=== PATIENT | female | born 1960 | race Caucasian/White ===

== ENCOUNTER 2020-04-04 12:42 | Inpatient (IN) | payer OTHER ==
[~2020-04-04] VITALS: Ht 157.5 cm; Wt 113.5 kg
[~2020-04-04 12:42] MED LIST: ALBU90OI INH; BUPR150T2; CIPR250 PO; HYDACE10B PO; HYDACE5 PO; HYDGUAL120 PO; PHENA200 PO; PROM25S PR; RXHYDGUAS PO; SERT100; SULTRIDS PO; TRAZ100
[2020-04-04 14:08] LABS: BASOPHILS ABSOLUTE AUTO 0.07 K/mm3 (0.00-0.23); BASOPHILS PERCENT AUTO 1 % (0-2); EOSINOPHILS ABSOLUTE AUTO 0.07 K/mm3 (0.00-0.68); EOSINOPHILS PERCENT AUTO 1 % (0-6); Hematocrit 39.6 % (33.0-51.0); Hemoglobin 13.3 g/dL (11.5-16.0); IMMATURE GRAN ABSOLUTE AUTO 0.03 K/mm3 (0.00-0.10); IMMATURE GRAN PERCENT AUTO 0 % (0-1); LYMPHOCYTES ABSOLUTE AUTO 2.47 K/mm3 (0.84-5.20); LYMPHOCYTES PERCENT AUTO 32 % (21-46); MONOCYTES ABSOLUTE AUTO 0.62 K/mm3 (0.16-1.47); MONOCYTES PERCENT AUTO 8 % (4-13); Mean Corpuscular HGB 30.6 pg (26.0-34.0); Mean Corpuscular HGB Conc 33.6 g/dL (31.5-36.5); Mean Corpuscular Volume 91 fL (80-100); Mean Platelet Volume 9.9 fL (9.1-12.4); NEUTROPHILS ABSOLUTE AUTO 4.58 K/mm3 (1.96-9.15); NEUTROPHILS PERCENT AUTO 58 % (41-73); Platelet Count 300 K/mm3 (150-400); RDW Coefficient Variation 13.7 % (11.7-14.2); Red Blood Cell Count 4.34 M/mm3 (3.80-5.20); White Blood Cell Count 7.84 K/mm3 (4.00-11.30)
[2020-04-04 14:39] LABS: Alanine Aminotransfer (ALT/SGP 21 U/L (12-78); Albumin, Blood 3.9 g/dL (3.4-5.0); Alk Phos 80 U/L (50-136); Anion Gap 6 mmol/L (6-16); Aspartate Aminotrans (AST/SGOT 18 U/L (12-37); Bilirubin, Total 0.3 mg/dL (0.1-1.0); Blood Urea Nitrogen 12 mg/dL (8-24); Bun/Creatinine Ratio 15.2 (12.0-20.0); CO2, Blood 25 mmol/L (21-32); Calcium, Blood 8.4 mg/dL (8.5-10.1); Chloride, Blood 108 mmol/L (98-108); Creatinine, Blood 0.79 mg/dL (0.40-1.00); Globulin, Blood 3.8 g/dL (2.2-4.0); Glomerular Filtration Rate >60 (60-); Glucose, Blood 82 mg/dL (70-99); Potassium, Blood 3.6 mmol/L (3.5-5.5); Sodium, Blood 139 mmol/L (136-145); Total Protein, Blood 7.7 g/dL (6.4-8.2); Troponin I 0.073 ng/mL (0.000-0.040)
[2020-04-04] MEDS ORDERED: Glucophage 850850 MG PO (17:25)
[2020-04-04] MEDS ORDERED: HYDCHL50 PO (17:25)
[2020-04-04] MEDS ORDERED: VENL75ER PO (17:26)
[2020-04-04] MEDS ORDERED: EUTHYROX175 MCG PO (17:26)
[2020-04-04] MEDS ORDERED: MOBIC15 MG PO (17:26)
[2020-04-04] MEDS ORDERED: Buspirone HCl30 MG PO (17:27)
[2020-04-04] MEDS ORDERED: ZESTRIL40 M1 PO (17:27)
[2020-04-04] MEDS ORDERED: Simvastatin40 MG PO (17:27)
[2020-04-04] MEDS ORDERED: ALBU90OI INH (18:09)
[2020-04-04] MEDS ORDERED: BUPR150ER PO (18:09)
[2020-04-04 18:17] LABS: International Normalized Ratio 0.99; Prothrombin Time Results 10.6 Sec (9.7-11.5)
[2020-04-04 20:38] LABS: Troponin I 0.068 ng/mL (0.000-0.040)
--- NOTE | 2020-04-04 21:35 | NUR ---
ADMIT ASSESSMENT PT ALERT AND ORIENTED UPON ARRIVAL TO ICU. PT WAS ABLE TO STAND AND TRASFER TO BED WITH NO ISSUES. VITALS ARE STABLE. ELEVATED BP HOWEVER SHE DENIES CHEST PAIN OR DISCOMFORT OF ANY TYPE. PT WAS ABLE TO GIVE A HEALTH HISTORY TO THIS RN. SHE STOOD AND WALKED TO TOILET WITH NO ASSISTANCE AND WAS A LITTLE SOB, BUT STATES THIS IS MUCH BETTER THAN EARLIER. NO DROP IN OXYGEN SATS AND SHE IS ON RA. TWO PERIPHERAL IV'S PATENT WITH CDI DRESSINGS. HEP GTT RUNNING AT 13 UNITS ORDERED. PT DOES HAVE A NICOLE GTT ORDERED, BUT KUSH FORRESTER DISABILITY SPECIALIST IN TO SEE PT AND STATES WILL START GTT IF NEEDED TO CON'T TO MONITOR CHEST PAIN AND BP. PT TOOK NIGHT MEDS WITH NO ISSUES. SHE WAS GIVEN A SNACK AT THIS TIME AND HAS NOT ISSUES WITH EATING. RT IN ROOM TO ASSESS PT FOR CPAP. PT STATES SHE USED TO WEAR ONE UNTIL IT WAS STOLEN. PT ORIENTED TO CALL LIGHT. WILL CON'T TO MONITOR AND KEEP PT SAFE T/O REMAINDER OF SHIFT.
[2020-04-04 21:53] LABS: Free Thyroxine 0.95 ng/dL (0.70-1.60)
[2020-04-04 21:55] LABS: Triiodothyronine, Free 2.35 pg/mL (2.18-3.98)
[2020-04-05 02:05] LABS: BASOPHILS ABSOLUTE AUTO 0.07 K/mm3 (0.00-0.23); BASOPHILS PERCENT AUTO 1 % (0-2); EOSINOPHILS ABSOLUTE AUTO 0.15 K/mm3 (0.00-0.68); EOSINOPHILS PERCENT AUTO 2 % (0-6); Hematocrit 38.2 % (33.0-51.0); Hemoglobin 12.9 g/dL (11.5-16.0); IMMATURE GRAN ABSOLUTE AUTO 0.02 K/mm3 (0.00-0.10); IMMATURE GRAN PERCENT AUTO 0 % (0-1); LYMPHOCYTES ABSOLUTE AUTO 3.42 K/mm3 (0.84-5.20); LYMPHOCYTES PERCENT AUTO 37 % (21-46); MONOCYTES ABSOLUTE AUTO 0.72 K/mm3 (0.16-1.47); MONOCYTES PERCENT AUTO 8 % (4-13); Mean Corpuscular HGB 30.9 pg (26.0-34.0); Mean Corpuscular HGB Conc 33.8 g/dL (31.5-36.5); Mean Corpuscular Volume 92 fL (80-100); Mean Platelet Volume 9.8 fL (9.1-12.4); NEUTROPHILS ABSOLUTE AUTO 4.92 K/mm3 (1.96-9.15); NEUTROPHILS PERCENT AUTO 53 % (41-73); Platelet Count 283 K/mm3 (150-400); RDW Standard Deviation 47.5 fL (35.1-46.3); Red Blood Cell Count 4.17 M/mm3 (3.80-5.20)
[2020-04-05 02:30] LABS: Anion Gap 4 mmol/L (6-16); Blood Urea Nitrogen 13 mg/dL (8-24); Bun/Creatinine Ratio 15.5 (12.0-20.0); CHOL/HDL RATIO 3.4; CO2, Blood 29 mmol/L (21-32); Calcium, Blood 8.2 mg/dL (8.5-10.1); Chloride, Blood 106 mmol/L (98-108); Cholesterol 202 mg/dL (50-200); Creatinine, Blood 0.84 mg/dL (0.40-1.00); Glomerular Filtration Rate >60 (60-); Glucose, Blood 96 mg/dL (70-99); HDL Cholesterol 60 mg/dL (>39); LDL/HDL RATIO 1.9; Low Density Lipoprotein Chol 112 mg/dL (0-110); Potassium, Blood 3.5 mmol/L (3.5-5.5); Sodium, Blood 139 mmol/L (136-145); Triglycerides 151 mg/dL (30-160); Troponin I 0.054 ng/mL (0.000-0.040); Very Low Density Lipoprot Chol 30 mg/dL (6-32)
--- NOTE | 2020-04-05 05:39 | NUR ---
SHIFT SUMMARY PT CON'T TO BE STABLE. HER BP IS ELEVATED, BUT SHE CON'T TO DENY CHEST PAIN OR ANY DISCOMFORT. VITLAS ARE STABLE OTHEWISE. PT WORE HER CPAP FOR A SHORT PERIOD OF TIME AND THEN COULD NOT TOLERATE IT. PT HAS BEEN UP TO TOILET A FEW TIMES. SHEIS PLESANT AND COOPERATIVE WITH ALL HER CARE AND USES HER CALL LIGHT WELL. HEP GTT CON'T TO RUN ORDERED. WILL CON'T TO MONITOR AND KEEP PT SAFE TILL REPORT TO ONCOMING RN.
--- NOTE | 2020-04-05 07:53 | NUR ---
CARE ASSUMED ASSESSMENT COMPLETED, PT A&OX4, APPROPRIATE AND COOPERATIVE. ASSISTED TO BR, GAIT STEADY. PT REPORTS MILD MID CHEST PRESSURE, DENIES PAIN, HEPARIN INFUSING AT 14U/KG/HR. HR 70'S SINUS, SBP 140-160. PT ALSO REPORTS MILD SOB WITH EXERTION, RESOLVES WITH REST, SPO2 94% RA, NO DESAT WITH AMBULATION. PT PLEASANT AND COOPERATIVE, SITTING UP EATING BREAKFAST AT THIS TIME WITHOUT DIFFICULTY. PLANNING FOR ECHO TODAY.
--- NOTE | 2020-04-05 14:44 | NUR ---
TRANSFER MED FLOOR PT HAD AN UNEVENTFUL MORNING AND AFTERNOON, BP REMAINS 150/105, DR. GALEANA, METOPROLOL ADDED TO REGIMEN PER ORDERS. OTHER VSS, PT MEDICATED FOR HEADACHE X1, REPORTS CHEST PRESSURE AND SOB REMAIN MINIMAL. GAIT STEADY WITH SBA, PT INDEPENDENT WITH CARES. HEPARIN INFUSING AT 16U/KG/HR PER ORDERS, DR. RESTREPO AWAITING ECHO RESULTS TO DECIDE ON INSERT OPERATOR VS. CARDIAC STRESS TESTING. REPORT GIVENT TO RECEIVING RN, PT TO ROOM 309 WITH CHART, MEDS, AND BELONGINGS. TRANSFERRED VIA WC WITHOUT INCIDENT.
--- NOTE | 2020-04-05 16:45 | NUR ---
ALERT. ORIENTED. ARRIVES FROM ICU ABOUT 1435. AMBULATORY IN ROOM W/STEADY GAIT. DENIES CHEST PAIN OR PRESSURE. ECHO REPORT NOT READ YET. PER CHYRON OPERATOR DEPENDING ON WHAT IT SAYS PATIENT MAY HAVE STRESS TEST OR ANGIOGRAM. REVIEWED WITH PATIENT BOTH PROCEDURES. IV PATENT WITH HEPARIN INFUSING.LUNGS CLEAR. TELE ON AND PER TECH SR AT 62. ABLE TO MAKE NEEDS KNOWN. TM
--- NOTE | 2020-04-05 17:44 | NUR ---
Initial spiritual care note: Per admit trigger, I met with Reshma to offer education about ACP. She was very interested in completing and advanced directive b/c her "Old one gives my ex- decision making power and he would say 'let her '." She smiled when she said this, but then told the story of their painful divorce and her subsequent homelessness because of it. I provided theraputic listening and spiritual recreational counselor to good effect. Advised that chaplains are available to help complete AD and encouraged her to do so this admission. She is hopeful for recovery and return to baseline ADLs. Leak Detection Engineer services will remain available.
[2020-04-06 01:27] LABS: Anion Gap 4 mmol/L (6-16); Blood Urea Nitrogen 15 mg/dL (8-24); Bun/Creatinine Ratio 17.6 (12.0-20.0); CO2, Blood 28 mmol/L (21-32); Calcium, Blood 8.2 mg/dL (8.5-10.1); Chloride, Blood 104 mmol/L (98-108); Creatinine, Blood 0.85 mg/dL (0.40-1.00); Glomerular Filtration Rate >60 (60-); Glucose, Blood 96 mg/dL (70-99); Potassium, Blood 3.7 mmol/L (3.5-5.5); Sodium, Blood 136 mmol/L (136-145)
[2020-04-06 01:28] LABS: BASOPHILS ABSOLUTE AUTO 0.08 K/mm3 (0.00-0.23); BASOPHILS PERCENT AUTO 1 % (0-2); EOSINOPHILS ABSOLUTE AUTO 0.12 K/mm3 (0.00-0.68); EOSINOPHILS PERCENT AUTO 1 % (0-6); Hemoglobin 11.9 g/dL (11.5-16.0); IMMATURE GRAN ABSOLUTE AUTO 0.02 K/mm3 (0.00-0.10); IMMATURE GRAN PERCENT AUTO 0 % (0-1); LYMPHOCYTES ABSOLUTE AUTO 4.04 K/mm3 (0.84-5.20); LYMPHOCYTES PERCENT AUTO 45 % (21-46); MONOCYTES ABSOLUTE AUTO 0.56 K/mm3 (0.16-1.47); MONOCYTES PERCENT AUTO 6 % (4-13); Mean Corpuscular HGB 30.3 pg (26.0-34.0); Mean Corpuscular HGB Conc 33.1 g/dL (31.5-36.5); Mean Corpuscular Volume 92 fL (80-100); Mean Platelet Volume 9.9 fL (9.1-12.4); NEUTROPHILS ABSOLUTE AUTO 4.09 K/mm3 (1.96-9.15); NEUTROPHILS PERCENT AUTO 46 % (41-73); Platelet Count 273 K/mm3 (150-400); RDW Coefficient Variation 13.8 % (11.7-14.2); RDW Standard Deviation 47.3 fL (35.1-46.3); Red Blood Cell Count 3.93 M/mm3 (3.80-5.20); White Blood Cell Count 8.91 K/mm3 (4.00-11.30)
--- NOTE | 2020-04-06 06:23 | NUR ---
04/06/20 0600 PT SLEPT WELL THIS SHIFT. VITALS STABLE. DENIES ANY DISCOMFORT OR S/S THIS SHIFT. HEPARIN DRIP REMAINS AT 16 UNITS/KG/HOUR PER PHARMACIST. UP TO BATHROOM INDEPENDENTLY. HEART MONITOR REMAINS SR IN THE 60'S.
--- NOTE | 2020-04-06 18:47 | NUR ---
PT PLEASANT COOP TODAY. NO C/O CHEST PAIN OR PRESSURE. PART ONE STRESS TEST DONE, PART TWO SCHED FOR TOMORROW 9AM. NPO MIDNITE. PT UNDERSTANDS/ NO NEW CONCERNS TODAY. BED IN LOW POSITION, CALL LITE IN REACH, CALLS APPROP
--- NOTE | 2020-04-07 05:14 | NUR ---
SHIFT SUMMARY- PT. A&O, INDEP IN ROOM. HAD NO ACUTE EVENTS OVERNIGHT. SCHEDULED FOR 2ND PART OF STRESS TEST TODAY. NPO SINCE MN AND NO CAFFEINE INTAKE. ASLEEP T/O THE NIGHT. NO APPARENT DISTRESS NOTED. ANTICIPATING D/C IF STRESS TEST NEG. CALL LIGHT WITHIN REACH AND SIDE RAILS UPX2. WILL CONT TO MONITOR.
--- NOTE | 2020-04-07 16:14 | NUR ---
SHIFT SUMMARY PATIENT IS PLEASNT, ALER AND ORIENTED INDEPENDENT. DENIES ANY CHEST PAIN OR PRESSURE TODAY. SHE DID HAVE HER STRESS TEST WHICH WAS ABNORMAL AND DR. MARI SPOKE WITH DR. FRAZIER. HE HAS STILL NOT BEEN IN TO SEE THE PATIENT YET TODAY BUT AWAITING HIS EVALUATION. SHE REPORTS THAT HER ABDOMEN HAS BEEN FEELING BETTER BUT STILL HAVING IDARRHEA. SHE IS FEELING BETTER NOW THAT SHE HAS GOTTEN SOME FOOD IN HER STOMAHC.
[2020-04-08 04:30] LABS: Anion Gap 5 mmol/L (6-16); Blood Urea Nitrogen 21 mg/dL (8-24); Bun/Creatinine Ratio 22.3 (12.0-20.0); CO2, Blood 29 mmol/L (21-32); Calcium, Blood 9.3 mg/dL (8.5-10.1); Chloride, Blood 102 mmol/L (98-108); Creatinine, Blood 0.94 mg/dL (0.40-1.00); Glomerular Filtration Rate >60 (60-); Glucose, Blood 93 mg/dL (70-99); Potassium, Blood 3.9 mmol/L (3.5-5.5); Sodium, Blood 136 mmol/L (136-145)
--- NOTE | 2020-04-08 04:57 | NUR ---
SHIFT SUMMARY- PT. HAD NO ACUTE CHANGES OVERNIGHT. NO COMPLAINTS OF CP. ASLEEP T/O THE SHIFT. NO APPARENT DISTRESS NOTED. PT. HAS BEEN NPO SINCE MN. ANTICIPATING ANGIOGRAM. CALL LIGHT WITHIN REACH AND SIDE RAILS UPX2. WILL CONT TO MONITOR.
--- NOTE | 2020-04-08 09:33 | NUR ---
ASSUMPTION OF CARE NOTE- PATIENT IS SLEEPING WELL. SHE HAS NO ACUTE CONCERNS AT THIS TIME. SPOKE WITH DR. FRAZIER ABOUT THE PATIENT'S CURRENT CONDITION AND HE NOTES THAT HE WILL BE TAKING THE PATIENT FOR AN ANGIOGRAM AFTER HIS EMERGENT CASE. PATIENT IS DENYING CHEST PAIN CURRENTLY. SHE IS SLEEPING AND STILL NPO SINCE MIDNIGHT.
--- NOTE | 2020-04-08 09:44 | NUR ---
DR. FRAZIER IN TO SEE THE PATIENT. PATIENT STILL DENIES CHEST PAIN. SHE IS PLEASANT. DR. FRAZIER HAS CONSENT FORM AND HAS ADEQUATELY EXPLAINED THIS PROCEDURE FOR THIS PATIENT. SHE HAS HAD A CHANCE TO ASK ALL QUESTIONS SHE NEEDS. PATIENT WILL GO TO PCU 3 POST ANGIOGRAM.
--- NOTE | 2020-04-08 15:52 | NUR ---
PATIENT OFF TO THE [facility]ART [facility], REPORT GIVEN TO NOELLE ESTEVES IN PCU PRIOR TO THE PATIENT BEFORE SHE LEFT. PATIENT BELONGINGS DOWN IN PCU FOR PATIENT'S ARRIVAL.
--- NOTE | 2020-04-08 16:53 | NUR ---
PT ARRIVED TO THE UNIT VIA HOSPITAL BED FROM CNC MACHINIST, POST ANGIO, PT IS CLEAR JUST HAD SOME SLOW BLOOD FLOW ISSUES. RIGHT RADIAL ACCESS SITE TR BAND WITH 16CC OF AIR, NO HEMATOMA OR BLEEDING NOTED. VITALS HRR SINUS 70'S, BP SYSTOLIC 115, SATS ABOVE 95% ON RA, AFEBRILE. PT IS ALERT AND ORIENTED. DENIES ANY CHEST PAIN AT THIS TIME. WILL MONITOR
--- NOTE | 2020-04-09 05:31 | NUR ---
SHIFT SUMMARY: KARMEN IS A&OX4. SHE IS INDEPENDENT IN THE ROOM. SHE DENIES ANY DIFFICULTIES URINATING. R WRIST ANGIOGRAM SITE INTACT W/NO DRAINAGE, ARM BOARD IN PLACE. VSS ORA, NO ACUTE EVENTS OVERNIGHT. TOLERATING PO INTAKE WELL. SHE USES THE CALL LIGHT APPROPRIATELY. SHE DENIES ANY CHEST PAIN OR SOB. SHE DOES REPORT THE NAUSEA IS IMPROVING AFTER THE PROCEDURE. SHE IS LYING IN BED WITH HER CALL LIGHT IN REACH. WILL REPORT TO DAY SHIFT RN.
[2020-04-09] MEDS ORDERED: Aspir 8181 MG PO (09:31)
[2020-04-09] MEDS ORDERED: Isosorbide Mono30 MG PO (09:31)
[2020-04-09] MEDS ORDERED: METO25ER PO (09:31)
[2020-04-09] MEDS ORDERED: NITROGLYCERIN0.4 M1 SL (09:34)
--- NOTE | 2020-04-09 11:45 | NUR ---
PT TO DISCHARGE TO HOME TODAY WITH DISCAHRGE ORDERS. VITALS STABLE THIS MORNING. NO ACUTE CHANGES, RIGHT RADIAL ACCESS SITE WITH CLEAR DRESSING REMAINED INTACT. PT TO ESTABLISH CARE WITH NEW PROVIDER AT [facility] CLERICAL DENTIST ASSISTANT DISCUSSED WITH THE PT, PT WILL RECEIVE A CALL FOR AN APPOINTMENT. INSTRUCTIONS AND NEW MEDICATIONS DISLOSED WTIH THE PT. PT ACCOMPANIED BY PCT VIA WHEELCHAIR FOR TRANSPORT.
== END 2020-04-09 12:52 | disposition home or self-care (01) | DRG 281 ==
LOC: ER 12:42 → MEDS 17:15 → ICUW 17:15 → ICUE 17:15 → MEDS 04-05 14:31 → PCU 04-08 16:13 → ENPENDDIS 04-09 08:56 → PCU 04-09 12:52
PROVIDERS: Internal Medicine; Nurse Practitioner Acute Care; Physician Assistant; ADMIT Internal Medicine
PROC: 4A023N7 Measurement of Cardiac Sampling and Pressure, Left Heart, Percutaneous Approach (ICD-10-PCS; principal; 2020-04-08)
PROC: B2111ZZ Fluoroscopy of Multiple Coronary Arteries using Low Osmolar Contrast (ICD-10-PCS; 2020-04-08)
DX: I21.4 Non-ST elevation (NSTEMI) myocardial infarction (principal); I16.1 Hypertensive emergency; I10 Essential (primary) hypertension; J44.9 Chronic obstructive pulmonary disease, unspecified; G47.33 Obstructive sleep apnea (adult) (pediatric); Z59.0 Homelessness; E89.0 Postprocedural hypothyroidism; Z98.1 Arthrodesis status; Z87.891 Personal history of nicotine dependence; F41.9 Anxiety disorder, unspecified; F32.9 Major depressive disorder, single episode, unspecified; E66.01 Morbid (severe) obesity due to excess calories; Z68.38 Body mass index [BMI] 38.0-38.9, adult; E78.5 Hyperlipidemia, unspecified; Z90.09 Acquired absence of other part of head and neck; E11.9 Type 2 diabetes mellitus without complications; I25.10 Atherosclerotic heart disease of native coronary artery without angina pectoris; Z79.84 Long term (current) use of oral hypoglycemic drugs
CPT/HCPCS: 36415; 71046; 76937; 78452; 80048; 80053; 80061; 82947; 83880; 84439; 84443; 84481; 84484; 85025; 85347; 85610; 85730; 93005; 93010; 93017; 93306; 93454; 93458; 94660; 94762; 96374; 96375; 99152; 99153; 99285-25; A9270; A9270-GY; A9500; C1769; C1894; J0706; J1644; J2250; J2405; J2785; J3010; J7030; J7050; Q9967

== ENCOUNTER → 2020-09-10 | Outpatient (CLI) | payer MEDICARE, OTHER ==
[~2020-09-10] MED LIST changes: +Aspir 8181 MG PO; +BUPR150ER PO; +Buspirone HCl30 MG PO; +EUTHYROX175 MCG PO; +Glucophage 850850 MG PO; +HYDCHL50 PO; +Isosorbide Mono30 MG PO; +METO25ER PO; +MOBIC15 MG PO; +NITROGLYCERIN0.4 M1 SL; +Simvastatin40 MG PO; +VENL75ER PO; +ZESTRIL40 M1 PO
[2020-09-11 06:57] LABS: C DIFFICILE DNA NEGATIVE (Negative)
== END | disposition home or self-care (01) ==
LOC: LAB 16:30 → LAB SHORT 16:30
PROVIDERS: Nurse Practitioner Family
DX: K52.9 Noninfective gastroenteritis and colitis, unspecified (principal)
CPT/HCPCS: 87338; 87493